=== PATIENT | female | born 1960 | race Caucasian/White ===

== ENCOUNTER 2018-10-07 05:22 | Inpatient (IN) | payer OTHER ==
[2018-09-24 10:57] LABS: HEMATOCRIT 42.6 % (37.0-47.0); MCH 28.2 pg (26.0-34.0); MCHC 32.7 g/dL (28.0-37.0); MCV 86.1 fL (80.0-100.0); RBC 4.95 mil/uL (4.20-5.00); RDW 13.9 % (10.5-14.5); WBC 6.4 thou/uL (4.0-11.0)
[2018-09-24 10:57] LABS: URINE BILIRUBIN NEGATIVE (Negative); URINE BLOOD NEGATIVE (Negative); URINE CLARITY CLEAR; URINE COLOR YELLOW; URINE GLUCOSE-RANDOM* NEGATIVE (Negative); URINE KETONES NEGATIVE (Negative); URINE LEUKOCYTES-REFLEX NEGATIVE (Negative); URINE NITRITE-REFLEX NEGATIVE (Negative); URINE PROTEIN (DIPSTICK) NEGATIVE (Negative); URINE SPECIFIC GRAVITY 1.025 (1.005-1.035); URINE UROBILINOGEN 0.2 E.U./dl (0.2-1.0)
[2018-09-24 11:08] LABS: ALBUMIN 4.1 g/dL (3.4-5.0); CALCIUM 9.5 mg/dL (8.5-10.1); CREATININE 0.9 mg/dL (0.6-1.0); POTASSIUM 4.4 mmol/L (3.5-5.1)
[2018-09-24 11:10] LABS: PROTIME 9.9 Seconds (9.3-11.4)
--- NOTE | 2018-09-25 08:34 | EKG ---
[place] [address] [facility] [place] [address] ELECTROCARDIOGRAM REPORT Name: TERRI PONCE Room #: [facility].#: [id number] ������������������ Admission: ������������������ Attend Phys: Chuck Jackson MD Discharge: ������������������ Date of : 60 Report #: [id number] ����������������������������������������������������������������� [id number] THIS REPORT FOR: //name// [facility] Test Date: 2018-09-24 Test Time: 10:54:52 Pat Name: TERRI PONCE Department: Room: Gender: F Gaming Dealer: SHAJI BOLES : 1960 Requested By: Chuck Jackson Order Number: [id number] MD: Monty Juan Measurements Intervals [place] Rate: 53 P: 26 MI: 175 QRS: 27 QRSD: 98 T: 31 QT: 440 QTc: 414 Interpretive Statements Sinus bradycardia Abnrm T, consider ischemia, anterolateral lds Compared to ECG 12/17/2009 17:34:27 T-wave abnormality is now present Sinus bradycardia no longer present Electronically Signed On 09-25-2018 8:34:19 CDT by Monty Juan [email or web address] ��������������������������������������������� <ELECTRONICALLY SIGNED> ���������������������������������������� By: Monty Juan MD, [facility] ��������������������������������������������� 09/25/18 0834 1054 105 Monty Juan MD, [facility] /EPI
[~2018-10-07] VITALS: Ht 162.6 cm; Wt 104.3 kg
[~2018-10-07 05:22] MED LIST: COLACE100 MG PO; DILAUDID 2 MG TA2 MG PO; IBUPROFEN 800800 M1 PO; SIMETHICON CHEW80 M1 PO
[2018-10-07 07:07] VITALS: BP 132/70
[2018-10-07 13:40] VITALS: BP 109/55
[2018-10-07 14:17] VITALS: BP 113/61
--- NOTE | 2018-10-07 15:13 | NUR ---
Pt arrived to floor from recovery room at 1340 in stable condition.Post op vss. Ice chips given per pt request.No nausea noted.Regular meal will be given at dinner.Pt in bed sleeping at present with polar pack to rt knee. at bs visiting.Will continue to monitor.
[2018-10-07 15:29] VITALS: BP 122/60
[2018-10-07 19:42] VITALS: BP 139/72
[2018-10-07 23:15] VITALS: BP 129/65
[2018-10-08 03:35] VITALS: BP 127/79
--- NOTE | 2018-10-08 03:37 | NUR ---
PT RESTED GOOD, HAS BEEN UP WITH ASSIST TO THE BSC, VOIDING, PAIN CONTROLLED BY OXYCODONE, NO NAUSEA NOTED, C/O INDIGESTION EARLIER, GIVEN MAALOX, ON ROOM AIR, POLAR ICE TO RIGHT KNEE, CHIO DRESSING PATENT, NO BEEP NOTED, TEDS/SCDS TO BLE, USING CALL LIGHT APPROPRIATELY, ABLE TO TURN/REPOSITION SELF, POLAR ICE KEPT COLD WITH ICE, TOLERATING ORAL INTAKE, MONITORED.
[2018-10-08 04:59] LABS: HEMATOCRIT 38.6 % (37.0-47.0); HEMOGLOBIN 12.6 gm/dL (12.0-15.0); MCH 28.4 pg (26.0-34.0); MCHC 32.7 g/dL (28.0-37.0); MCV 86.8 fL (80.0-100.0); RBC 4.45 mil/uL (4.20-5.00)
[2018-10-08 05:11] LABS: CALCIUM 9.1 mg/dL (8.5-10.1); CREATININE 1.1 mg/dL (0.6-1.0); POTASSIUM 5.2 mmol/L (3.5-5.1)
--- NOTE | 2018-10-08 06:16 | O ---
[address] [address] OPERATIVE REPORT Name: TERRI PONCE Room #: 429-P ADM IN M.R.#: [id number] Admission: 10/07/18 ������������������ Attend Phys: Chuck Jackson MD Discharge: ������������������ Date of : 60 Report #: [id number] THIS REPORT FOR: //name// CC: Alex Jackson DATE OF SERVICE: 10/07/2018 SERVICE: Orthopedics. FACILITY: [facility]. SURGEON: Chuck Jackson MD TECHNICAL SOURCING RECRUITER: Melissa Singh NP. INDICATIONS FOR TECHNICAL SOURCING RECRUITER: Extremity positioning, retraction and assistance with the arthroplasty. PREOPERATIVE DIAGNOSES: 1. Right knee pain. 2. Right knee medial compartment osteoarthritis. POSTOPERATIVE DIAGNOSES: 1. Right knee pain. 2. Right knee medial compartment osteoarthritis. 3. Right knee lateral patellar tracking. PROCEDURES: 1. Right unicompartmental knee arthroplasty with computer navigated robotic assistance. 2. Open lateral release, right knee. COMPLICATIONS: None. DRAINS: None. SPECIMENS: None. FINDINGS: 1. Boo and Nephew size 5 Journey Oxinium femoral right medial component. 2. Boo and Nephew size 3 unicompartmental right medial tibial component. 3. Size 39 mm unicompartmental polyethylene insert. 4. Intact patellofemoral and lateral compartment cartilage without signs of arthritis with an intact ACL. [address] [address] OPERATIVE REPORT Name: TERRI PONCE Room #: 429-P [facility] IN [facility]#: [id number] Admission: 10/07/18 ������������������ Attend Phys: Chuck Jackson MD Discharge: ������������������ Date of : 60 Report #: [id number] HISTORY: The patient is a 58-year-old female with a history of progressive persistent right varus type medial compartment knee arthritis. We tried extensive conservative treatment including rest, activity modifications, physical therapy, intra-articular injections, oral medicines and modalities all without sufficient relief. Ultimately, she had elected to undergo arthroplasty. We discussed unicompartmental versus total. She seems to be a good candidate for uni based on her physical exam, x-rays and symptom pattern. Risks, benefits, alternatives and indications of surgery were discussed with her in detail. Risks include but not limited to pain, bleeding, infection, injury to nerves or blood vessels, persistent pain despite surgical intervention, failure of the arthroplasty, need for further surgery including conversion to total knee arthroplasty, stiffness as well as complications related to anesthesia such as stroke, heart attack, pulmonary complications, thromboembolic disease and . Despite these risks, she wished to proceed. PROCEDURE IN DETAIL: After right lower extremity was correctly identified in preoperative holding area as the operative extremity, the patient was taken to the operating room where a single shot regional nerve block was performed. General anesthesia was then induced without complication. She was padded appropriately. Prophylactic antibiotics were administered at appropriate time. Tourniquet was applied to right leg. Right lower extremity was prepped and draped in standard sterile fashion. Time-out procedure was performed. Esmarch was used. Tourniquet inflated to 250 mmHg. Standard anterior approach was made in the midline with the lower half of the standard total knee arthroplasty incision with the option to extend fully as needed. The arthrotomy was then performed in a medial parapatellar fashion. Care was taken to protect the cartilage of the patellofemoral joint as well as the cruciate ligaments. The anterior horn of the medial meniscus was incised and the medial compartment was evaluated. She had [id number] arthritis in the medial compartment. The patella was then subluxated and the lateral compartment was fully visualized and was found to be healthy. The lateral meniscus was healthy. The patellofemoral joint was healthy as well. There was a band of tissue at the mid point approximately of the patella laterally that was tethering the patella with her varus alignment. Plans were made to assess this after the arthroplasty. There was still tension here. The medial portion of the retropatellar tendon fat pad was then resected. The Boo and NephYellowHammer Navio tracer pegs were then placed in the bone and the guide pins as well in a typical bicortical fashion. The computer was used to find registry and alignment sizing and performed the preoperative planning to allow the surgical custody made and surgical cuts were then made with the bur in a typical fashion utilizing the [employer] computer navigated robotic assistance system. The size 5 unicompartmental femoral component trial and size 3 tibial component were then placed. The knee was well balanced with a 9 mm polyethylene insert trial, taken through range of motion and assessed then the gap balancing with the robotic assistance software [address] [address] OPERATIVE REPORT Name: PONCETERRI DEE Room #: 429-P [facility] IN M.R.#: [id number] Admission: 10/07/18 ������������������ Attend Phys: Chuck Jackson MD Discharge: ������������������ Date of : 60 Report #: [id number] and found the knee to be well balanced with good alignment. She had some correction of her 90 degrees of the preoperative varus that still remain under corrected position to protect the lateral compartment. The trials were removed. Knee was thoroughly irrigated and then the final implants were cemented into place. The excess cement was resected. The tourniquet was let down. Hemostasis was achieved. A parent articular injection cocktail was infiltrated in the soft tissues including in the posterior capsule prior to placing the final implant. After the knee was trialled with the 9 mm poly insert trial, we selected a 9 mm poly final implants and snapped that into position. The knee was again taken through range of motion and found to be stable and secure, thoroughly irrigated, 1 gram of vancomycin powder was placed in the wound. The arthrotomy was closed with 0 Vicryl suture in [id number] fashion. Watson flexion test was performed to confirm appropriate arthrotomy closure and then the fat layer was closed with 0 Vicryl suture in [id number]-[id number] fashion. Skin was closed with 2-0 Vicryl followed by running subcuticular 3-0 Monocryl and Dermabond. Sterile dressing was applied followed by compression stocking. The patient was awakened from anesthesia and taken to recovery room in stable condition. No complications. All counts were correct. ��������������������������������������������� <ELECTRONICALLY SIGNED> ���������������������������������������� By: Chuck Jackson MD ��������������������������������������������� 10/08/18 0616 1115 1210 Chuck Jackson MD /nt
[2018-10-08 08:00] VITALS: BP 118/58
--- NOTE | 2018-10-08 10:13 | NUR ---
INITIAL ASSESSMENT: Pt evaluated for d/c planning needs. Reviewed chart and spoke with nurse and pt. Pt is alert and oriented. Pt lives in [place] with her and 8 year old grandson. Pt remains active in the community and is employed outside the home. Pt has walker at home and has made arrangements for outpatient physical therapy. Pt began outpatient PT prior to surgery. Pt plans on returning home on d/c from hospital. Will remain available to assist as needed.
--- NOTE | 2018-10-08 14:00 | NUR ---
ASSESMENT COMPLETED. VSS. A/O. PAIN MANAGED BY MEDS ORDERED. NO NOTED SOA. NO NV. CHIO DRESSING CDI. DC INSTRUCTIONS CDI. PT TO DC HOME WITH SELF CARE.
[2018-10-08 14:22] VITALS: BP 118/58
[2018-10-08] MEDS ORDERED: COLACE100 MG PO (14:26)
[2018-10-08] MEDS ORDERED: MS CONTIN15 MG PO (14:27)
[2018-10-08] MEDS ORDERED: OXYCODONE HCL 55 MG PO (14:27)
[2018-10-08] MEDS ORDERED: ASPIRIN325 PO (14:29)
[2018-10-08] MEDS ORDERED: ONDANSETRON HCL4 M2 PO (14:29)
== END 2018-10-08 15:58 | disposition home health service (06) | DRG 470 ==
LOC: OR 05:22 → TBA 05:22 → OR 05:52 → PRE 11:33 → OR 12:37 → EDSTATUS 13:16 → OR 13:21 → 4E 13:39 → OR 13:39 → 4E 10-08 15:58
PROVIDERS: ADMIT Orthopaedic Surgery Sports Medicine
PROC: 0SRC0L9 Replacement of Right Knee Joint with Medial Unicondylar Synthetic Substitute, Cemented, Open Approach (ICD-10-PCS; principal; 2018-10-07)
PROC: 8E0Y0CZ Robotic Assisted Procedure of Lower Extremity, Open Approach (ICD-10-PCS; principal; 2018-10-07)
PROC: 0SNC0ZZ Release Right Knee Joint, Open Approach (ICD-10-PCS; 2018-10-07)
DX: M17.11 Unilateral primary osteoarthritis, right knee (principal)
CPT/HCPCS: 10783; 50010; 50101; 50415; 50954; 51130; 51225; 51320; 51771; 52001; 52282; 53078; 53370; 54118; 56527; 56528; 57095; 57103; 57110; 57127; 57181; 62110; 62900; 64043; 65060; 70005